=== PATIENT | male | born 2000 | race African-American/Black ===

== ENCOUNTER 2020-01-20 21:24 | Emergency (ER) | payer MEDICAID, SELFPAY ==
[2020-01-20] MEDS ORDERED: Lidocaine 1% (PF) 30 ML VIAL ONE (21:50)
[2020-01-20] MEDS ORDERED: Adacel (T-DAP) 0.5 ML SYRINGE ONE (21:50)
[2020-01-20] MEDS ORDERED: Bacitracin 1 PK ONE (23:21)
--- NOTE | 2020-01-21 07:08 | CT ---
CT FACE WITHOUT CONTRAST: HISTORY: Chin laceration. The patient fell playing basketball. TECHNIQUE: Multiple contiguous axial images were obtained in a CT of the face without contrast. Sagittal and cor onal reformats were performed. FINDINGS: There is a mildly comminuted fracture of the left mandibular condyle, which extends to the temporoman dibular joint. There is widening of the left temporomandibular joint. There also appears to be a subt le crack in the right mandibular condyle, which is nondisplaced. No other mandibular fractures are se en. Soft tissue swelling is seen in the chin and there is a small laceration just beneath the chin. No ot her facial fractures are identified. The globes and retrobulbar soft tissues are unremarkable. IMPRESSION: Bilateral mandibular condyle fractures. POS: EAA
== END 2020-01-20 23:21 | disposition home or self-care (01) ==
LOC: ERS 21:24
DX: S02.612A Fracture of condylar process of left mandible, initial encounter for closed fracture (principal); S02.611A Fracture of condylar process of right mandible, initial encounter for closed fracture; S01.81XA Laceration without foreign body of other part of head, initial encounter; F17.210 Nicotine dependence, cigarettes, uncomplicated; Z23 Encounter for immunization; W01.0XXA Fall on same level from slipping, tripping and stumbling without subsequent striking against object, initial encounter; Y93.67 Activity, basketball
CPT/HCPCS: 12011; 70486; 90471; 90715; J2001

== ENCOUNTER 2022-01-21 10:07 | Emergency (ER) | payer SELFPAY | END 2022-01-21 11:37 | disposition home or self-care (01) | LOC: ERS 10:07 | DX: K08.89 Other specified disorders of teeth and supporting structures (principal); F17.210 Nicotine dependence, cigarettes, uncomplicated | CPT/HCPCS: 99282 ==

== ENCOUNTER 2022-08-24 05:34 | Emergency (ER) | payer SELFPAY ==
[2022-08-24] MEDS ORDERED: Ketorolac Tromethamine 30 MG/ML VIAL ONE (06:11)
== END 2022-08-24 06:17 | disposition home or self-care (01) ==
LOC: ERS 05:34
DX: K08.89 Other specified disorders of teeth and supporting structures (principal); F17.210 Nicotine dependence, cigarettes, uncomplicated
CPT/HCPCS: 96372; 99282; J1885

== ENCOUNTER 2023-05-15 08:15 | Emergency (ER) | payer SELFPAY ==
[2023-05-15 09:06] LABS: #Eosinphils 0.2 thou/uL (0.0-0.7); #Monocytes 0.7 thou/uL (0.11-0.59); #Neutrophils 2.5 thou/uL (1.40-6.50); %Basophils 0.3 % (0.0-1.0); %Eosinophils 2.5 % (0.0-10.0); %Lymphocytes 44.8 % (21.0-51.0); %Monocytes 10.8 % (0.0-10.0); %Neutrophils 41.3 % (42.0-75.0); Hematocrit 47.4 % (42.0-52.0); Hemoglobin 14.8 g/dL (14.0-18.0); Mean Corpuscular HGB CONC 31.2 g/dL (32.0-36.0); Mean Corpuscular Hemoglobin 22.7 pg (27.0-31.0); Mean Corpuscular Volume 72.8 fl (78.0-98.0); Mean Platelet Volume 10.1 fL (7.4-10.4); Platelet Count 233 10x3/uL (130-400); RBC Distribution Width 16.8 % (11.5-14.5); Red Blood Cell (RBC) Count 6.51 mill/uL (4.70-6.10)
[2023-05-15 09:32] LABS: ALT (SGPT) 10 U/L (8-55); AST (SGOT) 17 U/L (5-34); Albumin 4.4 g/dL (3.5-5.0); Alkaline Phosphatase 55 U/L (40-110); Anion Gap 12 mmol/L (10-20); BUN (Urea Nitrogen) 11 mg/dL (8.9-20.6); Bilirubin, Total Less than 0.2 mg/dL (0.2-1.2); Calc. Creatinine Clearance 0 mL/min (70-130); Calcium 9.5 mg/dL (7.8-10.44); Carbon Dioxide 28 mmol/L (22-29); Chloride 102 mmol/L (98-107); Estimated GFR 124; Globulin 3.4 g/dL (2.4-3.5); Glucose 83 mg/dL (70-105); Lipase 37 U/L (8-78); Potassium 3.7 mmol/L (3.5-5.1); Protein, Total 7.8 g/dL (6.0-8.3); Sodium 138 mmol/L (136-145)
[2023-05-15 09:36] LABS: Troponin I Less than 0.010 ng/mL (< 0.028)
[2023-05-15 09:45] LABS: Anisocytosis SLIGHT = 6-15 cells HPF (0-5); CellaVision Operator ID LAB.MJL; Hypochromia SLIGHT = 6-15 cells HPF (0-5); Microcytosis SLIGHT = 6-15 cells HPF (0-5); Platelet Adequacy Comment Platelets Normal; Target Cells SLIGHT = 2-5 cells HPF (0-1); Tear Drops SLIGHT = 2-5 cells HPF (0-1)
[2023-05-15] MEDS ORDERED: Aspirin Chewable 81 MG TAB ONE (09:58)
== END 2023-05-15 10:57 | disposition home or self-care (01) ==
LOC: ERS 08:15
DX: R07.9 Chest pain, unspecified (principal); F17.210 Nicotine dependence, cigarettes, uncomplicated
CPT/HCPCS: 71045; 80053; 83690; 84484; 85025; 93005